=== PATIENT | male | born 1985 | race Caucasian/White ===

== ENCOUNTER 2025-10-11 10:30 | Inpatient (IN) | payer SELFPAY ==
[2025-10-11] VITALS (16 sets, daily range): BP systolic 52–157; BP diastolic 21–93; PULSE 0–145; RESP 15–57; TEMP 36.6; O2SAT 79–100
[~2025-10-11] VITALS: Ht 172.7 cm; Wt 90.9 kg
[2025-10-11] MEDS: SODIUM CHLORIDE 0.9% 1,000 ML IV ONE ×2 (11:09→12:12)
[2025-10-11 11:24] LABS: BASOPHILS % 0.5 % (0.0-2.0); EOSINOPHILS % 0.1 % (0.0-5.0); HEMATOCRIT. 51.5 % (42.0-52.0); HEMOGLOBIN. 15.9 g/dL (14.0-18.0); LYMPHOCYTES % 13.7 % (20.0-50.0); MEAN PLATELET VOLUME 9.1 fl (7.4-10.4); MONOCYTES % 4.5 % (2.0-8.0); NEUTROPHILS % 81.2 % (40.0-76.0); PLATELET 214 x1000/uL (130-400); RED BLOOD CELL COUNT 5.62 mill/uL (4.7-6.1); RED CELL DISTRIBUTION WIDTH 16.2 % (11.6-14.6)
[2025-10-11 11:45] LABS: INR 1.1
[2025-10-11 11:53] LABS: CREATININE 1.3 mg/dL (0.6-1.3); ETHANOL BLOOD < 10 mg/dL (<10); UREA NITROGEN BLOOD 10 mg/dL (9-23)
[2025-10-11 11:54] LABS: PROTEIN TOTAL 7.2 g/dL (6.0-8.3)
[2025-10-11 11:55] LABS: ASPARTATE AMINOTRANSFERASE 32 IU/L (<34); BILIRUBIN DIRECT 0.1 mg/dL (<=3.0); BILIRUBIN TOTAL 0.7 mg/dL (0.1-1.0)
[2025-10-11 11:59] LABS: T4 FREE 1.29 ng/dL (0.89-1.76)
[2025-10-11] MEDS ORDERED: INSULIN REGULAR (HUMULIN R) 1000UNITS/10ML VIAL IV ONE (12:00)
[2025-10-11] MEDS ORDERED: ALBUTEROL (0.5%) 2.5MG/0.5ML NEB HHN ONE (12:00)
[2025-10-11 12:04] LABS: TROPONIN I HIGH SENSITIVITY 1106 ng/L (3.0-53)
[2025-10-11] MEDS: DEXTROSE 50% WATER 50ML SYRINGE IV ONE (12:10)
[2025-10-11] MEDS: CALCIUM GLUCONATE 100MG/ML 10ML VIAL IV ONE (12:23)
[2025-10-11] MEDS: FUROSEMIDE 40MG/4ML VIAL IV ONE (12:23)
[2025-10-11] MEDS: VANCOMYCIN 1G PREMIX 200 ML IV SCH (12:29)
[2025-10-11 12:30] LABS: BG DEOXYHEMOGLOBIN 82.1 % (0.0-5.0)
[2025-10-11] MEDS ORDERED: KCL 20MEQ/100ML PREMIX 100 ML IV PRN (12:30)
[2025-10-11] MEDS ORDERED: BLOOD SUGAR DIAGNOSTIC STRIP TEST PRN (12:30)
[2025-10-11] MEDS ORDERED: DEXTROSE 50% WATER 50ML SYRINGE IV PRN (12:30)
[2025-10-11] MEDS ORDERED: POTASSIUM CHLORIDE 40 MEQ in SODIUM CHLORIDE 0.9% 230 ML IV PRN (12:30)
[2025-10-11] MEDS ORDERED: SODIUM PHOSPHATE 15 MMOL in SODIUM CHLORIDE 0.9% 245 ML IV PRN (12:30)
[2025-10-11] MEDS ORDERED: MAGNESIUM 2 G PREMIX 50 ML IV PRN (12:30)
[2025-10-11] MEDS: DEXT 5%/0.9% NACL 1,000 ML IV SCH (12:30)
[2025-10-11] MEDS: SODIUM CHLORIDE 0.9% 1,000 ML IV SCH (12:47)
[2025-10-11] MEDS: INSULIN REGULAR (DRIP) 100 UNITS in SODIUM CHLORIDE 0.9% 99 ML IV SCH (13:18)
[2025-10-11] MEDS: INSULIN REGULAR (HUMULIN R) 1000UNITS/10ML VIAL IV ONE (13:19)
[2025-10-11] MEDS: BLOOD SUGAR DIAGNOSTIC STRIP TEST SCH (13:20)
[2025-10-11] MEDS ORDERED: PIPERACILLIN/TAZO 3.375G/50ML 50 ML IV SCH (14:00)
[2025-10-11] MEDS ORDERED: HEPARIN 5000 UNITS/ML VIAL IV ONE (14:45)
[2025-10-11] MEDS ORDERED: HEPARIN 25,000 UNITS in DEXT 5% WATER 245 ML IV SCH (14:45)
[2025-10-11] MEDS ORDERED: NOREPINEPHRINE 32 MG in DEXT 5% WATER 218 ML IV PRN (15:00)
[2025-10-11] MEDS ORDERED: PHENYLEPHRINE 100 MG in DEXT 5% WATER 240 ML IV PRN (15:00)
[2025-10-11] MEDS ORDERED: EPINEPHRINE 10 MG in SODIUM CHLORIDE 0.9% 240 ML IV PRN (15:00)
== END 2025-10-11 14:45 | DRG 420 ==
LOC: ER 10:30 → EDBEDREQ 12:23 → EDBEDREQSVC 12:23 → EDBEDREQTM 12:23 → MICUSO 12:32 → EDBEDREQTM 12:33 → EDBEDREQ 12:33
PROVIDERS: ADMIT Internal Medicine; ATTEND Internal Medicine
PROC: 0BH17EZ Insertion of Endotracheal Airway into Trachea, Via Natural or Artificial Opening (ICD-10-PCS; principal; 2025-10-11)
PROC: 5A12012 Performance of Cardiac Output, Single, Manual (ICD-10-PCS; 2025-10-11)
DX: E11.10 Type 2 diabetes mellitus with ketoacidosis without coma (principal); I46.9 Cardiac arrest, cause unspecified; I50.9 Heart failure, unspecified; E87.5 Hyperkalemia; Z79.84 Long term (current) use of oral hypoglycemic drugs
CPT/HCPCS: 31500; 36415; 71045; 80048; 80076; 80320; 82010; 82375; 82550; 82803; 82962; 83605; 83735; 83880; 84132; 84439; 84443; 84484; 85025; 85379; 86850; 86900; 92950; 93005; 94070; 99291; 99292; J0612; J1815; J1938; J3373; J7030; J7042; J7050; G0480